=== PATIENT | male | born 1985 | race Caucasian/White ===

== ENCOUNTER 2017-08-08 13:41 | Emergency (ER) | payer SELFPAY ==
[~2017-08-08] VITALS: Ht 177.8 cm; Wt 72.9 kg
[2017-08-08 13:49] VITALS: TEMP 36.6; Ht 177.8 cm; Wt 72.9 kg
[2017-08-08] MEDS ORDERED: IBUPROFEN 600 MG TAB PO STA (14:09)
[2017-08-08] MEDS ORDERED: OPTIRAY 320 IV PRN (14:15)
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
[2017-08-08 14:35] LABS: BASO % 0.2 %; BASO ABS # 0.02 K/uL (0-0.2); EOS % 1.7 %; EOS ABS # 0.17 K/uL (0-0.5); HEMOGLOBIN 16.5 g/dL (14.0-18.0); IG# 0.03 K/uL (0.00-0.02); LYMPH % 21.8 %; LYMPH ABS # 2.18 K/uL (1.2-3.4); MEAN CELL VOLUME 91.5 fL (80-100); MEAN CORPUSCULAR HEMOGLOBIN 32.8 pg (25-34); MEAN CORPUSCULAR HGB CONC 35.9 g/dl (32-36); MEAN PLATELET VOLUME 8.5 fL (7.4-10.4); MONO % 9.9 %; MONO ABS # 0.99 K/uL (0.11-0.59); NEUT % 66.1 %; NEUT ABS # 6.59 K/uL (1.4-6.5); PLATELET COUNT 216 K/uL (130-400); RED CELL DISTRIBUTION WIDTH CV 13.4 % (11.5-14.5); RED CELL DISTRIBUTION WIDTH SD 43.9 fL (36.4-46.3); WHITE BLOOD COUNT 9.98 K/uL (4.8-10.8)
[2017-08-08 14:52] LABS: CALCIUM 8.8 mg/dl (8.5-10.1); CREATININE 0.91 mg/dl (0.60-1.40); POTASSIUM 3.8 mmol/L (3.5-5.1)
[2017-08-08 14:55] LABS: TOTAL PROTEIN 8.6 gm/dl (6.4-8.2)
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
--- NOTE | 2017-08-08 15:38 | DIAGNOSTIC IMAGING REPORT ---
FACIAL-MAXILLOFACIAL WITH CLINICAL HISTORY: LEFT JAW PAIN, SWELLING, EVAL ABSCESS/CELLULITIS TECHNIQUE: Transaxial acquisition with multi axial reformatted images COMPARISON STUDY: None FINDINGS: Left perimandibular and to lesser extent left inferior. Maxillary soft tissue edema. No evidence for drainable abscess or collection. Several caries are identified on the left. Small periapical abscesses are identified involving the left maxillary and left history of mandibular molars. All remaining osseous structures are unremarkable. The orbital margins are intact. All major sinuses are considered clear. IMPRESSION: 1. Poor dentition involving the left maxilla and left posterior mandible. 2. Several small periapical abscesses and caries are identified at both locations. 3. Left perimandibular and to a lesser extent left premaxillary soft tissue edematous change consistent with cellulitis. 4. No evidence for drainable abscess or collection. The above report was generated using voice recognition software. It may contain grammatical, syntax or spelling errors. Electronically signed by: Jim Edwards M.D. 08/08/2017 3:36 PM Dictated Date/Time: 08/08/2017 3:33 PM
[2017-08-08] MEDS ORDERED: AMOX875T PO (15:52)
[2017-08-08] MEDS ORDERED: AMPICILLIN/SULBACTAM SOD INJ 3,000 MG in SODIUM CHLORIDE 0.9% 100ML 100 ML IV ONE (16:00)
[2017-08-08 16:09] VITALS: BP 139/84; PULSE 102; O2SAT 93
== END 2017-08-08 16:35 | disposition home or self-care (01) ==
LOC: C.EDB 13:44
DX: K04.7 Periapical abscess without sinus (principal); M25.511 Pain in right shoulder; K03.81 Cracked tooth; Y04.0XXA Assault by unarmed brawl or fight, initial encounter; F17.210 Nicotine dependence, cigarettes, uncomplicated